=== PATIENT | male | born 1980 | race Caucasian/White ===

== ENCOUNTER 2018-03-23 19:08 | Emergency (ER) | payer MEDICAID ==
[2018-03-23] MEDS ORDERED: MIRTAZAPINE 15 MG TAB PO ONE (19:17)
[2018-03-23] MEDS ORDERED: hydrOXYzine HCL 25 MG TAB PO ONE (19:18)
--- NOTE | 2018-03-23 19:19 | EDPHY ---
H & P Stated Complaint: hallucinations Source: Patient, EMS Exam Limitations: No limitations Time Seen by Provider: 03/23/18 19:19 HPI/ROS: HPI: This is a 37-year-old male who presents with Chief Complaint: Hallucinations, suicidal thoughts Location:psych Quality: Hallucinations, suicidal thoughts Duration: Today Signs and Symptoms: Timing: Acute on chronic Severity: Moderate to severe Context: Patient has a history of schizophrenia presents via EMS with complaints of rapidly worsening severe auditory and visual hallucinations. Patient reports he has not taking his psychiatric medications in 7 days including Abilify 10 mg at bedtime, gabapentin 900 mg three times daily, Remeron 15 mg at bedtime. He reports that he has not slept in 7 days. He feels extremely anxious and has a rapid thought process. He reports that he has thoughts of killing himself. Reports that he used heroin 3 days ago. Denies any recent alcohol use. Reports that he does not do well taking Zyprexa and request Abilify and Remeron as well as hydroxyzine for anxiety upon arrival. He also reports that he feels paranoid. Modifying Factors: None Comment: ROS: see HPI Constitutional: No fever, no chills, no weight loss Eyes: No blurred vision Respiratory: No shortness of breath, no cough Cardiovascular: No chest pain Gastrointestinal: No nausea, no vomiting, no diarrhea Genitourinary: No dysuria Extremities: No myalgias Neurologic: No weakness, no numbness Skin: No rashes Hematologic: No bruising, no bleeding MEDICAL/SURGICAL/SOCIAL HISTORY: Medical history: Schizophrenia Surgical history: Denies Social history: Transient. Family history noncontributory. CONSTITUTIONAL: Untidy, cooperative, adult white male a awake and alert, no obvious distress HEENT: Atraumatic and normocephalic, PERRL, EOMI. Nares patent; no rhinorrhea; no nasal mucosal edema. Tympanic membranes clear. Oropharynx clear, poor dentition, no exudate and moist pink mucosa. Airway patent. No lymphadenopathy. No meningismus. Cardiovascular: Normal S1/S2, regular rate, regular rhythm, without murmur rub or gallop. PULMONARY/CHEST: Symmetrical and nontender. Clear to auscultation bilaterally. Good air movement. No accessory muscle usage. ABDOMEN: Soft, nondistended, nontender, no rebound, no guarding, no peritoneal signs, no masses or organomegaly. No CVAT. EXTREMITIES: 2/2 pulses, strength 5/5, no deformities, no clubbing, no cyanosis or edema. NEUROLOGICAL: no focal neuro deficits. GCS 15. SKIN: Warm and dry, no erythema. no rash. Good capillary refill. PSYCH: Poor eye contact, no flight of ideas, relatively organized thought process, fair insight and judgment, + auditory hallucinations, + visual hallucinations, + suicidal ideation with a plan, no homicidal ideation, + paranoia (Angela Olivares) Constitutional: Initial Vital Signs Temperature (C) 36.4 C 03/23/18 19:29 Heart Rate 83 03/23/18 19:29 Respiratory Rate 19 03/23/18 19:29 Blood Pressure 127/80 H 03/23/18 19:29 O2 Sat (%) 96 03/23/18 19:29 O2 Delivery Mode Room Air Allergies/Adverse Reactions: No Known Allergies Allergy (Unverified 03/23/18 19:29) Home Medications: Medication Instructions Recorded Abilify 10 mg (*) HS 03/23/18 Gabapentin 900 mg TID 03/23/18 Remeron soltab 15 mg (*) HS 03/23/18 traMADol 100 mg TID 03/23/18 Medical Decision Making ED Course/Re-evaluation: 1914: Placed on M1 hold upon arrival due to being gravely disabled and eminent danger to himself. Labs and UDS ordered. Patient given hydroxyzine 25 mg upon arrival. Abilify 10 mg at bedtime, Remeron 15 mg at bedtime ordered. 1955: UDS is positive for marijuana. 1999: Labs reviewed. Medically clear for mental health evaluation. 2024: EPS called. 2214: Spoke with EPS who reports that patient is noncompliant with interview. The plan is to re-evaluate in the morning with the intention to recommend inpatient psychiatric hospitalization and medication stabilization. He further recommends patient be referred to [facility]. 0100: End of shift. Signed over to Dr. Dickinson pending mental health evaluation in a.m.. This patient was seen under the supervision of my secondary supervising physician. I evaluated care for this patient independently. Discussed this patient with Dr. Jin. (Angela Olivares) 0618: No acute events overnight. Patient is sleeping. Patient needs re- evaluation this morning. Signed over to Dr. Israel. (Isael Dickinson) Differential Diagnosis: Differential diagnosis includes but is not limited to schizoaffective disorder, paranoid schizophrenia, bipolar disorder, suicidal ideation, intoxicant use. (Angela Olivares) Other Provider: Patient has been evaluated by mental health who feels patient is safe for discharge home. (Kerwin Israel) - Data Points Laboratory Results: Laboratory Results 03/23/18 19:39 03/23/18 19:39 Medications Given: Nicotine Polacrilex (Nicorette) 2 mg B PRN PRN PRN Reason: Nicotine Withdrawal Stop: 09/20/18 08:56 Last Admin: 03/24/18 09:03 Dose: 2 mg Discontinued Medications Aripiprazole (Abilify) 10 mg PO EDNOW ONE Stop: 03/23/18 20:01 Last Admin: 03/23/18 20:03 Dose: 10 mg Gabapentin (Neurontin) 900 mg PO EDNOW ONE Stop: 03/24/18 10:27 Last Admin: 03/24/18 10:29 Dose: 900 mg Hydroxyzine HCl (Hydroxyzine Hcl) 25 mg PO ONCE ONE Stop: 03/23/18 19:19 Last Admin: 03/23/18 20:02 Dose: 25 mg Mirtazapine (Remeron) 15 mg PO HS ONE Stop: 03/23/18 19:18 Last Admin: 03/23/18 20:03 Dose: 15 mg Departure - Departure Clinical Impression: Schizophrenia, acute, Verbalizes suicidal thoughts Psychosis Qualifiers: Psychosis type: schizophrenia Schizophrenia type: unspecified Qualified Code(s) : F20.9 - Schizophrenia, unspecified Condition: Good Instructions: Schizophrenia (ED) Referrals: NONE *PRIMARY CARE P,. [Primary Care Provider] - As per Instructions
[2018-03-23 19:54] LABS: PLATELET COUNT 239 10^3/uL (150-400)
[2018-03-23] MEDS ORDERED: ARIPiprazole 10 MG TAB PO ONE (20:00)
[2018-03-24] MEDS ORDERED: NICOTINE POLACRILEX 2 MG GUM B PRN (08:57)
[2018-03-24] MEDS ORDERED: GABAPENTIN 300 MG CAP PO ONE (10:26)
[2018-03-24 10:42] VITALS: BP 110/76
[2018-03-25] MEDS ORDERED: GABAPENTIN 300 MG CAP PO ONE (10:24)
== END 2018-03-24 10:46 | disposition home or self-care (01) ==
DX: R45.851 Suicidal ideations (principal); F20.9 Schizophrenia, unspecified
CPT/HCPCS: 80305; G0480

== ENCOUNTER 2018-04-06 14:54 | Emergency (ER) | payer MEDICAID ==
[2018-04-06] MEDS ORDERED: KETOROLAC 30 MG/1 ML SDV IM ONE (15:39)
[2018-04-06] MEDS ORDERED: traMADol 50 MG TAB PO ONE (15:39)
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
[2018-04-06 16:08] VITALS: BP 130/71
== END 2018-04-06 16:08 | disposition home or self-care (01) ==
DX: M54.9 Dorsalgia, unspecified (principal); G89.29 Other chronic pain; F17.200 Nicotine dependence, unspecified, uncomplicated; Z76.0 Encounter for issue of repeat prescription
CPT/HCPCS: J1885

== ENCOUNTER 2018-04-30 | Emergency (ER) | payer OTHER | END 2018-04-30 04:04 | disposition home or self-care (01) ==